=== PATIENT | female | born 1940 | race Caucasian/White ===

== ENCOUNTER 2024-11-30 21:32 | Emergency (ER) | payer OTHER, SELFPAY ==
[2024-11-30 21:46] VITALS: BP 128/95
[2024-12-01 01:59] VITALS: BP 159/100
--- NOTE | 2024-12-01 02:21 | ED.GENMED ---
History of Present Illness
General
Chief Complaint: Skin Surface Trauma
Time Seen by Provider: 12/01/24 01:52
History of Present Illness
History of Present Illness:
84-year-old female with history of hypertension presenting to the emergency department for skin avulsion to the left lower extremity. Patient notes that she has chronic skin changes in the left lower extremity and prior to arrival when she was
getting in the car, the skin accidentally pulled off causing bleeding. She is on aspirin, no other thinners. Denies numbness or tingling to the leg. Denies fever. Denies significant direct trauma to the leg or additional acute medical complaints
Past History
Past History
ED Past Medical History: HTN, Hypercholesterolemia and Other (Bronchiectasis)
ED Past Surgical History: Gynecological and Orthopedic
Social History
Tobacco: Non-smoker
Alcohol: None
Drug: None
Living: with family
Employment: Retired
Phy Exam
Physical Exam
Physical Exam:
General: Well-appearing, no clinical signs of dehydration, nontoxic and in no acute distress
HEENT: protecting airway
Neck: appears supple
CV: Normal heart rate
Resp: No accessory muscle use, no increased work of breathing
Abd: no distension
Extremities: No deformities, no swelling
Neuro: alert, no focal neurologic deficit
: deferred
Rectal: deferred
Psych: Normal affect
Skin: Skin avulsion to the left anterior gastelum with bleeding controlled. No erythema or warmth to the leg
Course
Vital Signs
Initial and Last Documented VS:
Initial Vital Signs
Temp Pulse Resp BP Pulse Ox
97.3 F 80 18 128/95 97
11/30/24 21:46 11/30/24 21:46 11/30/24 21:46 11/30/24 21:46 11/30/24 21:46
Last Documented Vital Signs
Temp Pulse Resp BP Pulse Ox
97.3 F 108 18 159/100 96
11/30/24 21:46 12/01/24 01:59 12/01/24 01:59 12/01/24 01:59 12/01/24 01:59
MDM/Problems Addressed
MDM/Problems Addressed:
84-year-old female presenting with skin avulsion to the left lower extremity. Vital signs on arrival significant for hypertension, however patient notes that she is feeling anxious.
On exam patient is resting comfortably, no acute distress or discomfort. Patient does have a superficial skin avulsion to lower extremity at the anterior gastelum. Avulsed skin is very friable, with wound edges already appearing to have limited
viability. Given the friability of the tissue, does not appear agreeable to suturing. For this reason, wound appropriately dressed with nonadherent bandages. No signs of infection to the area. Supplies provided to patient. Feel stable for
discharge with continued outpatient supportive wound management. Advised outpatient wound care follow-up. Patient would prefer to follow-up through the [facility]. Advised calling her primary care doctor for referral. Return
precautions discussed to patient and family at bedside.
*Pulse Oximetry
SaO2: 96
Oxygen Mode of Delivery: Room air
Patient hypoxic: no
*Critical Care Note
Total Time (30-74mins, 75-104mins- exclusive of procedures): Not Applicable
ED Attending Note
-
Portions of this chart may have been created with voice recognition software.� Occasional wrong word or��sound alike� substitutions may have occurred due to the inherent limitations of voice recognition software.
Discharge Plan
Departure
Patient Disposition: Home (Routine Discharge)
Date of Disposition: 12/01/24
Time of Disposition: 02:26
Patient with high blood pressure during this ER visit?: Yes
Condition: Good
Discharge Problem:
Avulsion of skin of left lower leg
Instructions: Wound Care ([place]), [facility]ounds, BLOOD PRESSURE
Prescriptions:
No Action
atorvastatin 40 MG tablet
40 mg PO QPM
carvedilol 6.25 MG tablet
6.25 mg PO BID
iron-vit C-vit [id number] acid [Iron 100 Plus] 1 EACH tablet
1 ea PO DAILY
cyanocobalamin (vitamin B-12) 1,000 MCG tablet
1,000 mcg PO .ONCEWEEKLY
aspirin 81 MG tablet,delayed release (DR/EC)
81 mg PO DAILY
guar gum 1 PKT packet
1 pkt PO DAILY
acetaminophen [Tylenol Arthritis] 650 MG tablet extended release
650 mg PO PRN PRN (Reason: pain)
dicyclomine 10 MG capsule
10 mg PO BID
nifedipine 30 MG tablet extended release
30 mg PO DAILY Qty: 30 0RF
clopidogrel 75 MG tablet
75 mg PO DAILY Qty: 19 0RF
Rx Instructions:
continue for 19 more days starting 05/25 and then stop and continue aspirin indefinately
Referrals:
Candido Holland MD [Family Provider]
Activity Restrictions/Additional Instructions:
You were seen in the emergency department for skin avulsion
Your wound was appropriately dressed. Please follow-up with a thoracic medicine specialist
Please follow-up closely with your primary care physician.
Return to the emergency department for any worsening of your symptoms including increased redness or drainage from the wound area, or any development of chest pain, difficulty breathing, abdominal pain with persistent vomiting and inability to
tolerate food or liquid by mouth (concern for dehydration), weakness, headache or confusion, fever greater than 100.4, or any additional symptoms that are concerning to you.
Thank you for choosing [facility].
Interventions
Interventions:
*Risk Screen - Suicide Last Done: 11/30/24 23:30
*General Assessment Last Done: 11/30/24 23:30
*Neglect/Abuse Screening Last Done: 11/30/24 23:30
*ED- Fall Risk Assessment Last Done: 11/30/24 23:30
*ED COVID-19 Vaccine History Last Done: 11/30/24 23:30
ED-Skin Assessment Last Done: 11/30/24 23:30
Discharge Date and Time
Print Language: AZERI
== END 2024-12-01 02:37 | disposition home or self-care (01) ==
LOC: EMR 21:32
PROVIDERS: EMERGENCY PHYSICIAN Student in an Organized Health Care Education/Training Program; FAMILY PHYSICIAN Family Medicine
DX: S81.802A Unspecified open wound, left lower leg, initial encounter (principal); V48.4XXA Person boarding or alighting a car injured in noncollision transport accident, initial encounter; I10 Essential (primary) hypertension; E78.00 Pure hypercholesterolemia, unspecified
CPT/HCPCS: 99282